=== PATIENT | female | born 1945 | race Caucasian/White ===

== ENCOUNTER → 2019-12-05 | Outpatient (CLI) | payer MEDICARE | LOC: MC.RAD 13:38 | DX: Z12.31 Encounter for screening mammogram for malignant neoplasm of breast (principal) ==

== ENCOUNTER 2020-03-02 14:04 | Outpatient (RCR) | payer MEDICARE | END 2020-03-29 | disposition home or self-care (01) | LOC: WSPT | DX: M89.8X2 Other specified disorders of bone, upper arm (principal) ==

== ENCOUNTER 2020-08-05 08:23 | Outpatient (RCR) | payer MEDICARE | END 2020-08-06 09:35 | disposition home or self-care (01) | LOC: WSPT 08:23 | DX: M79.622 Pain in left upper arm (principal) ==

== ENCOUNTER 2020-08-19 14:06 | Outpatient (CLI) | payer MEDICARE ==
[~2020-08-19] VITALS: Ht 152.4 cm; Wt 49.4 kg
[2020-08-19 14:44] VITALS: BP 158/64; PULSE 69; TEMP 97.9
[2020-08-19] MEDS ORDERED: GLUCOSAMINE & C1 TAB PO (14:57)
[2020-08-19] MEDS ORDERED: MASON NATURAL2000 IU PO ×2 (15:01→15:14)
[2020-08-19] MEDS ORDERED: MSM500 MG PO (15:01)
[2020-08-19] MEDS ORDERED: CEROVITE SENIOR1 TA1 PO (15:02)
[2020-08-19] MEDS ORDERED: ALEVE 220MG220 MG PO (15:02)
[2020-08-19] MEDS ORDERED: NATURAL MAGNES200 MG PO ×2 (15:03→15:05)
[2020-08-19] MEDS ORDERED: LIPITOR 80MG80 MG PO (15:05)
[2020-08-19] MEDS ORDERED: PHARMASSURE ZIN50 MG PO (15:06)
[2020-08-19] MEDS ORDERED: B COMPLEX #11 TA1 PO (15:06)
[2020-08-19] MEDS ORDERED: LUTEIN6 MG PO (15:12)
[2020-08-19] MEDS ORDERED: THE MEDICINE S200 M2 PO (15:13)
[2020-08-19] MEDS ORDERED: OMEGA-3 1000 MG1 CAP PO (15:13)
[2020-08-19] MEDS ORDERED: PROBIOTIC FORMU1 CAP PO (15:13)
[2020-08-19] MEDS ORDERED: VITAMINC1000TA PO (15:14)
[2020-08-19] MEDS ORDERED: ZESTRIL 20MG TA20 MG PO (15:14)
--- NOTE | 2020-08-19 15:50 | NUR ---
Pt tolerated infusion without issue, and remained in dept for over 30 mins following completion of infusion. IV DC'd with catheter intact. She was escorted out to elevator.
== END 2020-08-19 16:22 | disposition home or self-care (01) ==
LOC: EUO 14:06
DX: M85.80 Other specified disorders of bone density and structure, unspecified site (principal); M81.0 Age-related osteoporosis without current pathological fracture; Z79.899 Other long term (current) drug therapy
CPT/HCPCS: J3489

== ENCOUNTER → 2021-04-18 | Outpatient (CLI) | payer MEDICARE ==
[~2021-04-18] MED LIST: ALEVE 220MG220 MG PO; B COMPLEX #11 TA1 PO; CEROVITE SENIOR1 TA1 PO; GLUCOSAMINE & C1 TAB PO; LIPITOR 80MG80 MG PO; LUTEIN6 MG PO; MASON NATURAL2000 IU PO; MSM500 MG PO; NATURAL MAGNES200 MG PO; OMEGA-3 1000 MG1 CAP PO; PHARMASSURE ZIN50 MG PO; PROBIOTIC FORMU1 CAP PO; THE MEDICINE S200 M2 PO; VITAMINC1000TA PO; ZESTRIL 20MG TA20 MG PO
== END ==
LOC: MC.RAD 14:30
DX: Z12.31 Encounter for screening mammogram for malignant neoplasm of breast (principal)